=== PATIENT | female | born 1965 | race Caucasian/White ===

== ENCOUNTER 2017-10-11 11:15 | Emergency (ER) | payer OTHER ==
[~2017-10-11] VITALS: Ht 162.6 cm; Wt 67.0 kg
[~2017-10-11 11:15] MED LIST: ARMO90TA PO; DICL1CAP4 PO; HYDR50TA94 PO; METR0.7514 PR; ORAC40CA PO; PRED20 PO; ROBA500T PO
[2017-10-11 11:20] VITALS: BP 162/101; PULSE 84; RESP 17; TEMP 98.5; O2SAT 99
--- NOTE | 2017-10-11 12:05 | PD ---
HPI Chief Complaint: Headache Time Seen by Provider: 11:49 Travel History International Travel<30 days: No Contact w/Intl Traveler<30days: No Traveled to known affect area: No History of Present Illness HPI 52-year-old female complains of headache, neck pain. Patient states that she has history of headache about 20 years ago and had full workup including CT of the brain. Workup was negative at that time. Patient states that she started having headache for the past 2 weeks. Patient states that headache is worse for the past several days. Patient states that headache is throbbing headache mostly in the back of the head. Patient denies any visual change. Patient states that she had aching pain to the neck area. Patient denies any fever chills. Patient denies any chest pain or shortness of breath. Patient denies abdominal pain. Patient denies any focal weakness or numbness of extremity. Patient has history of Maryan thyroiditis. Patient's on thyroid pills. Patient denies any photophobia nausea vomiting with headache. Patient denies any recent head injury. Patient was seen by physician the [place] [facility]. 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) Tonsillectomy: Yes Social History Alcohol Use: Yes (" NEEDED " ) Tobacco Use: Yes (1 PPD) Substance Use: No Allergies-Medications (Allergen,Severity, Reaction): Coded Allergies: penicillin G (Unverified Allergy, Severe, HIVES, 10/11/17) thyroid, pork (Verified Allergy, Severe, hives, 10/11/17) Reported Meds & Prescriptions Reported Meds & Active Scripts Active Robaxin (Methocarbamol) 500 Mg Tab 500 Mg PO TID 5 Days Zorvolex (Diclofenac) 35 Mg Cap 35 Mg PO TID 3 Days Atarax (Hydroxyzine HCl) 50 Mg Tab 50 Mg PO Q6 PRN Deltasone (Prednisone) 20 Mg Tab 20 Mg PO BID Reported Metrogel (Metronidazole) 70 Gm Gel 1 Applic [place] BID Oracea (Doxycycline (Rosacea)) 40 Mg Cap 40 Mg PO DAILY [place] Thyroid (Thyroid) 90 Mg Tab 90 Mg PO DAILY Review of Systems General / Constitutional: No: Fever Eyes: No: Visual changes HENT: Positive: Headaches, Neck Pain Cardiovascular: No: Chest Pain or Discomfort Respiratory: No: Shortness of Breath Gastrointestinal: No: Abdominal Pain Genitourinary: No: Dysuria Musculoskeletal: No: Pain Skin: No Rash Neurologic: No: Weakness Psychiatric: No: Depression Endocrine: No: Polydipsia Hematologic/Lymphatic: No: Easy Bruising Physical Exam Narrative GENERAL: Well-nourished, well-developed patient. SKIN: Focused skin assessment warm/dry. HEAD: Normocephalic. EYES: No scleral icterus. No injection or drainage. Pupils 2 mm equal reactive. NECK: Supple, trachea midline. No JVD or lymphadenopathy. No meningismus CARDIOVASCULAR: Regular rate and rhythm without murmurs, gallops, or rubs. RESPIRATORY: Breath sounds equal bilaterally. No accessory muscle use. GASTROINTESTINAL: Abdomen soft, non-tender, nondistended. MUSCULOSKELETAL: No cyanosis, or edema. BACK: Nontender without obvious deformity. No CVA tenderness. Neurologic exam: Patient is awake and alert oriented 3. No obvious focal neurological deficit. Data Data Last Documented VS Vital Signs Date Time Temp Pulse Resp B/P (MAP) Pulse Ox O2 Delivery O2 Flow Rate FiO2 10/11/17 11:29 Room Air 10/11/17 11:20 98.5 84 17 162/101 (121) 99 Orders Orders Basic Metabolic Panel (Bmp) (10/11/17 11:57) Ct Brain W/O Iv Contrast(Rout) (10/11/17 11:57) Ct Cerv Spine W/O Contrast (10/11/17 11:57) Labs Laboratory Tests Test 10/11/17 12:09 Blood Urea Nitrogen 10 MG/DL Creatinine 0.59 MG/DL Random Glucose 86 MG/DL Calcium Level 8.5 MG/DL Sodium Level 140 MEQ/L Potassium Level 3.7 MEQ/L Chloride Level 105 MEQ/L Carbon Dioxide Level 26.5 MEQ/L Anion Gap 9 MEQ/L Estimat Glomerular Filtration Rate 107 ML/MIN MDM Medical Decision Making Medical Screen Exam Complete: Yes Emergency Medical Condition: Yes Interpretation(s) Last Impressions Head CT 10/11/17 [id number] Signed Impressions: Service Date/Time: September 12:34 - CONCLUSION: 1. No acute intracranial abnormality. Solomon Justin MD Cervical Spine CT 10/11/17 1157 Signed Impressions: Service Date/Time: September 12:34 - CONCLUSION: No fracture or subluxation. Degenerative changes. Adryan Duque MD Differential Diagnosis Differential diagnosis including tension headache, cluster headache, migraine headache, cervical strain Narrative Course 52-year-old female complains of headache and neck pain. Diagnosis Primary Impression: Cephalgia Qualified Codes: R51 - Headache Additional Impression: Cervical strain Qualified Codes: S16.1XXA - Strain of muscle, fascia and tendon at neck level , initial encounter Patient Instructions: General Instructions Additional Instructions: Take medication as needed for headache and neck pain. Follow-up with personal physician. Follow-up with local physician for thyroid check. Med/Other Pt SpecificInfo: Prescription(s) given Scripts Fxsffovjif-Jxtssvjilztog-Vawcgfyy (Fioricet) 50-300-40 Mg Cap 1-2 CAP PO Q6H Y for HEADACHE, #30 CAP 0 Refills Prov: Trenton Bose MD 10/11/17 Disposition: 01 DISCHARGE HOME Condition: Stable Trenton Bose MD Oct 11, 2017 12:05
--- NOTE | 2017-10-11 12:42 | RADRPT ---
EXAM DATE/TIME: 10/11/2017 12:34 [facility] COMPARISON: No previous studies available for comparison. INDICATIONS : Dizzy with headaches and neck pain RADIATION DOSE: 33.98 CTDIvol (mGy) MEDICAL HISTORY : Thyroid disease,migraines SURGICAL HISTORY : None. ENCOUNTER: Initial ACUITY: 1 day PAIN SCALE: 8/10 LOCATION: cranial TECHNIQUE: Multiple contiguous axial images were obtained of the head. Using automated exposure control and adj ustment of the mA and/or kV according to patient size, radiation dose was kept as low as reasonably a chievable to obtain optimal diagnostic quality images. DICOM format image data is available electro nically for review and comparison. FINDINGS: CEREBRUM: The ventricles are normal for age. No evidence of midline shift, mass lesion, hemorrhage or acute in farction. No extra-axial fluid collections are seen. POSTERIOR FOSSA: The cerebellum and brainstem are intact. The 4th ventricle is midline. The cerebellopontine angle i s unremarkable. EXTRACRANIAL: The visualized portion of the orbits is intact. SKULL: The calvaria is intact. No evidence of skull fracture. CONCLUSION: 1. No acute intracranial abnormality. Solomon Justin MD on October 11, 2017 at 12:39 Board Certified Radiologist. This report was verified electronically.
[2017-10-11 12:52] LABS: BICARBONATE 26.5 MEQ/L (21.0-32.0); CALCIUM 8.5 MG/DL (8.5-10.1); CREATININE 0.59 MG/DL (0.50-1.00)
--- NOTE | 2017-10-11 12:55 | RADRPT ---
EXAM DATE/TIME: 10/11/2017 12:34 [facility] COMPARISON: No previous studies available for comparison. INDICATIONS : Dizzy with headache and neck pain RADIATION DOSE: 20.62 CTDIvol (mGy) MEDICAL HISTORY : Thyroid disease,migraines SURGICAL HISTORY : None. ENCOUNTER: Initial ACUITY: 1 day PAIN SCALE: 8/10 LOCATION: neck TECHNIQUE: Volumetric scanning of the cervical spine was performed. Multiplanar reconstructions in the sagittal, coronal and oblique axial planes were performed. Using automated exposure control and adjustment o f the mA and/or kV according to patient size, radiation dose was kept as low as reasonably achievable to obtain optimal diagnostic quality images. DICOM format image data is available electronically f or review and comparison. FINDINGS: VERTEBRAE: Normal vertebral body height. ALIGNMENT: No evidence of subluxation. C2-C3: The bony spinal canal is normal in size. No evidence of disc bulge or herniation. The neural forami na are bilaterally patent. C3-C4: The bony spinal canal is normal in size. No evidence of disc bulge or herniation. Bilateral neural f oraminal narrowing. C4-C5: The bony spinal canal is normal in size. No evidence of disc bulge or herniation. There are degenera tive changes with narrowing of the neural foramen greater on the left. C5-C6: The bony spinal canal is normal in size. No evidence of disc bulge or herniation. Bilateral neural f oraminal narrowing. C6-C7: The bony spinal canal is normal in size. No evidence of disc bulge or herniation. The neural forami na are bilaterally patent. C7-T1: The bony spinal canal is normal in size. No evidence of disc bulge or herniation. The neural forami na are bilaterally patent. CONCLUSION: No fracture or subluxation. Degenerative changes. Adryan Duque MD on October 11, 2017 at 12:50 Board Certified Radiologist. This report was verified electronically.
[2017-10-11] MEDS ORDERED: BUTA1CAP PO (13:39)
== END 2017-10-11 14:22 | disposition home or self-care (01) ==
LOC: NEPD 11:15
DX: R51 Headache (principal); S16.1XXA Strain of muscle, fascia and tendon at neck level, initial encounter; E06.3 Autoimmune thyroiditis; F17.210 Nicotine dependence, cigarettes, uncomplicated; Z88.0 Allergy status to penicillin; Z79.899 Other long term (current) drug therapy
CPT/HCPCS: 70450; 72125; 80048; 84443

== ENCOUNTER 2017-10-27 01:54 | Emergency (ER) | payer OTHER ==
[~2017-10-27] VITALS: Ht 162.6 cm; Wt 67.3 kg
[~2017-10-27 01:54] MED LIST changes: +BUTA1CAP PO
[2017-10-27 02:03] VITALS: BP 157/95; PULSE 69; RESP 16; TEMP 97.3; O2SAT 99
[2017-10-27] MEDS ORDERED: MECL-62 PO (02:19)
--- NOTE | 2017-10-27 02:19 | PD ---
HPI Chief Complaint: Numbness/Tingling Time Seen by Provider: 02:15 Travel History International Travel<30 days: No Contact w/Intl Traveler<30days: No Traveled to known affect area: No History of Present Illness HPI Is a 52-year-old woman who presents to the emergency department multiple complaints. History is a little bit convoluted she appears to be intoxicated. She states that she is having spells that she thought were seizures but was told that they were not seizures that appear to involve intermittent dizziness that brought on by [place] sounds or heights. She states is been ongoing for quite some time and last for "forever" when they come on. Also appears to be associated some neck and back pain. She has had previous workup including CT scans and labs here, and MRIs with the [facility]. She is [facility] up at the [facility] for endocrinology for her thyroid. She states she came in tonight because she knows that something is wrong and that she can go on living like this. She has a lot of difficulty clarifying her symptoms are being able to describe exactly later, the emergency department tonight. She was brought in by a friend apparently in by private vehicle. History Past Medical History Narrative Medical Thyroid disease Menopausal: Yes : 0 Social History Alcohol Use: Yes (" NEEDED " ) Tobacco Use: Yes (1 PPD) Allergies-Medications (Allergen,Severity, Reaction): Coded Allergies: penicillin G (Unverified Allergy, Severe, HIVES, 10/27/17) thyroid, pork (Verified Allergy, Severe, hives, 10/27/17) Reported Meds & Prescriptions Reported Meds & Active Scripts Active Fioricet (Sriobzbylx-Aobrhqstgkgee-Lfifemwd) 50-300-40 Mg Cap 1-2 Cap PO Q6H PRN Robaxin (Methocarbamol) 500 Mg Tab 500 Mg PO TID 5 Days Zorvolex (Diclofenac) 35 Mg Cap 35 Mg PO TID 3 Days Atarax (Hydroxyzine HCl) 50 Mg Tab 50 Mg PO Q6 PRN Deltasone (Prednisone) 20 Mg Tab 20 Mg PO BID Reported Metrogel (Metronidazole) 70 Gm Gel 1 Applic [place] BID Oracea (Doxycycline (Rosacea)) 40 Mg Cap 40 Mg PO DAILY [place] Thyroid (Thyroid) 90 Mg Tab 90 Mg PO DAILY Review of Systems Except as stated in HPI: all other systems reviewed are Neg Physical Exam Narrative GENERAL: 52-year-old woman, anxious, mildly intoxicated. SKIN: Focused skin assessment warm/dry. HEAD: Atraumatic. Normocephalic. EYES: Pupils equal and round. No scleral icterus. No injection or drainage. ENT: No nasal bleeding or discharge. Mucous membranes pink and moist. NECK: Trachea midline. Moves neck freely. CARDIOVASCULAR: Regular rate and rhythm. No murmur appreciated. RESPIRATORY: No accessory muscle use. Clear to auscultation. Breath sounds equal bilaterally. GASTROINTESTINAL: Abdomen soft, non-tender, nondistended. Hepatic and splenic margins not palpable. MUSCULOSKELETAL: No obvious deformities. No clubbing. No cyanosis. No edema. NEUROLOGICAL: Awake and alert. No obvious cranial nerve deficits. Motor grossly within normal limits. Speech is a little bit slurred. PSYCHIATRIC: Anxious per Data Data Last Documented VS Vital Signs Date Time Temp Pulse Resp B/P (MAP) Pulse Ox O2 Delivery O2 Flow Rate FiO2 10/27/17 02:03 97.3 69 16 157/95 (115) 99 MDM Medical Decision Making Medical Screen Exam Complete: Yes Emergency Medical Condition: Yes Differential Diagnosis Anxiety, intoxication, adverse effect to medication, atypical seizures, vertigo , BPPV, other Narrative Course Medical decision making 52-year-old woman presents emerged department complaining of what seems to be intermittent dizzy spells ongoing for quite some time, multiple previous evaluations. Evaluations compounded by the fact that she appears to be intoxicated. Nonetheless shows overall well. No focal deficits. She has had recent imaging on our system. I think [facility] is [facility]. Diagnosis Primary Impression: Dizzy spells Additional Instructions: Use meclizine as needed for dizzy spells. [facility]. Med/Other Pt SpecificInfo: No Change to Meds Scripts Meclizine (Meclizine) 25 Mg Tab 25 MG PO TID Y for VERTIGO, #15 TAB 0 Refills Prov: Jareth Carbajal MD 10/27/17 Disposition: 01 DISCHARGE HOME Condition: Stable Jareth Carbajal MD Oct 27, 2017 02:19
[2017-10-27] MEDS ORDERED: OMEP40CA2 PO (02:32)
[2017-10-27] MEDS ORDERED: LEVO.2 PO (02:32)
[2017-10-27 02:37] VITALS: BP 128/81
[2017-10-27 05:51] VITALS: BP 114/79
== END 2017-10-27 05:58 | disposition home or self-care (01) ==
LOC: PHED 01:54
DX: R42 Dizziness and giddiness (principal); F17.210 Nicotine dependence, cigarettes, uncomplicated; Z88.0 Allergy status to penicillin; Z79.899 Other long term (current) drug therapy
CPT/HCPCS: 99281

== ENCOUNTER 2017-10-27 19:45 | Inpatient (IN) | payer OTHER ==
[~2017-10-27] VITALS: Ht 162.6 cm; Wt 65.9 kg
[~2017-10-27 19:45] MED LIST changes: +LEVO.2 PO; +MECL-62 PO; +OMEP40CA2 PO
[2017-10-27 20:15] VITALS: BP 162/107; PULSE 83; RESP 18; O2SAT 98
--- NOTE | 2017-10-27 20:20 | PD ---
HPI Chief Complaint: Psychiatric Symptoms Time Seen by Provider: 20:04 Travel History International Travel<30 days: No Contact w/Intl Traveler<30days: No Traveled to known affect area: No History of Present Illness HPI 52-year-old white female presents emergency department under a [place] act by PD. She had text message to a friend stating that she was done. She had stated that she had drank alcohol and taken pills. The patient states that she is not truly suicidal. She states that she is frustrated regarding her pain. She does drink alcohol. She took her regular medications and one additional Flexeril. She denies any overdose. Patient denies any homicidal ideation. She does complain of chronic pain. She states that she is 40% service- connected. She was seen [facility] the [facility] last week and had an MRI of the brain done. She states that she has headaches and feels as if she may be having seizures. She states that she never loses consciousness. She has problems focusing and concentrating. Symptoms are moderate. No alleviating factors. Exacerbated by alcohol. 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) Tonsillectomy: Yes Other Surgery: Yes (Sinus) Social History Alcohol Use: Yes (" NEEDED " ) Tobacco Use: Yes (1 PPD) Substance Use: No Allergies-Medications (Allergen,Severity, Reaction): Coded Allergies: penicillin G (Verified Allergy, Severe, HIVES, 10/27/17) thyroid, pork (Verified Allergy, Severe, hives, 10/27/17) Reported Meds & Prescriptions Reported Meds & Active Scripts Active Meclizine (Meclizine HCl) 25 Mg Tab 25 Mg PO TID PRN Fioricet (Hshiijyhbh-Cvtebaviejtmz-Ymjtmydp) 50-300-40 Mg Cap 1-2 Cap PO Q6H PRN Robaxin (Methocarbamol) 500 Mg Tab 500 Mg PO TID 5 Days Zorvolex (Diclofenac) 35 Mg Cap 35 Mg PO TID 3 Days Reported Omeprazole 40 Mg Cap 40 Mg PO DAILY Synthroid (Levothyroxine Sodium) 200 Mcg Tab 200 Mcg PO DAILY Review of Systems Except as stated in HPI: all other systems reviewed are Neg General / Constitutional: No: Fever Eyes: No: Visual changes HENT: Positive: Headaches, Neck Pain Cardiovascular: No: Chest Pain or Discomfort Respiratory: No: Shortness of Breath Gastrointestinal: Positive: Nausea Genitourinary: No: Dysuria Musculoskeletal: No: Pain Skin: No Rash Neurologic: Positive: Dizziness, Coordination Problem, Headache, Paresthesia, No: Weakness, Syncope, Focal Abnormalities Psychiatric: Positive: Anxiety, Depression, Mood Disorder, Substance Abuse ( Alcohol), No: Suicidal Ideations, Disorder of Thought Endocrine: No: Polydipsia Hematologic/Lymphatic: No: Easy Bruising Physical Exam Narrative GENERAL: Well-nourished, well-developed patient. Patient appears intoxicated. Speech is slurred. SKIN: Warm and dry. HEAD: Normocephalic and atraumatic. EYES: No scleral icterus. No injection or drainage. ENT: No nasal drainage noted. Mucous membranes pink. Airway patent. NECK: Supple, trachea midline. Moves head freely without obvious discomfort. CARDIOVASCULAR: Regular rate and rhythm without murmurs, gallops, or rubs. RESPIRATORY: Breath sounds equal bilaterally. No accessory muscle use. GASTROINTESTINAL: Abdomen soft, non-tender, nondistended. EXTREMITIES: No cyanosis or edema. BACK: Nontender without obvious deformity. No CVA tenderness. NEURO: Patient is alert and oriented. no sensorimotor deficits. Nonfocal. Slurred al speech. PSYCH: No delusions. No auditory or visual hallucinations. Data Data Last Documented VS Vital Signs Date Time Temp Pulse Resp B/P (MAP) Pulse Ox O2 Delivery O2 Flow Rate FiO2 10/27/17 21:32 92 18 115/65 (82) 95 Room Air Orders Orders Complete Blood Count With Diff (10/27/17 20:12) Comprehensive Metabolic Panel (10/27/17 20:12) Thyroid Stimulating Hormone (10/27/17 20:12) Urinalysis - C+S If Indicated (10/27/17 20:12) Psych Screen (10/27/17 20:12) Drug Screen, Random Urine (10/27/17 20:12) Alcohol (Ethanol) (10/27/17 20:12) Salicylates (Aspirin) (10/27/17 20:12) Tylenol (Acetaminophen) (10/27/17 20:12) Haloperidol Inj (Haldol Inj) (10/27/17 20:45) Lorazepam Inj (Ativan Inj) (10/27/17 20:45) Restraints Non-Violent SOPHIA.Q3H (10/27/17 20:42) Labs Laboratory Tests Test 10/27/17 20:15 10/27/17 21:05 White Blood Count 9.0 TH/MM3 Red Blood Count 4.71 MIL/MM3 Hemoglobin 15.2 GM/DL Hematocrit 43.7 % Mean Corpuscular Volume 92.9 FL Mean Corpuscular Hemoglobin 32.3 PG Mean Corpuscular Hemoglobin Concent 34.7 % Red Cell Distribution Width 14.2 % Platelet Count 307 TH/MM3 Mean Platelet Volume 9.2 FL Neutrophils (%) (Auto) 30.8 % Lymphocytes (%) (Auto) 60.1 % Monocytes (%) (Auto) 3.4 % Eosinophils (%) (Auto) 5.2 % Basophils (%) (Auto) 0.5 % Neutrophils # (Auto) 2.8 TH/MM3 Lymphocytes # (Auto) 5.4 TH/MM3 Monocytes # (Auto) 0.3 TH/MM3 Eosinophils # (Auto) 0.5 TH/MM3 Basophils # (Auto) 0.0 TH/MM3 CBC Comment AUTO DIFF Differential Total Cells Counted 100 Neutrophils % (Manual) 36 % Lymphocytes % 59 % Monocytes % 1 % Eosinophils % 1 % Basophils % 3 % Neutrophils # (Manual) 3.2 TH/MM3 Differential Comment FINAL DIFF MANUAL Platelet Estimate NORMAL Platelet Morphology Comment NORMAL Red Cell Morphology Comment NORMAL Urine Color LIGHT-YELLOW Urine Turbidity CLEAR Urine pH 5.5 Urine Specific [place] 1.002 Urine Protein NEG mg/dL Urine Glucose (UA) NEG mg/dL Urine Ketones NEG mg/dL Urine Occult Blood NEG Urine Nitrite NEG Urine Bilirubin NEG Urine Urobilinogen LESS THAN 2.0 MG/DL Urine Leukocyte Esterase NEG Urine WBC LESS THAN 1 /hpf Urine Squamous Epithelial Cells <1 /hpf Urine Bacteria RARE /hpf Microscopic Urinalysis Comment CULT NOT INDICATED Urine Opiates Screen NEG Urine Barbiturates Screen POS Urine Amphetamines Screen NEG Urine Benzodiazepines Screen NEG Urine Cocaine Screen NEG Urine Cannabinoids Screen NEG Blood Urea Nitrogen 7 MG/DL Creatinine 0.71 MG/DL Random Glucose 98 MG/DL Total Protein 7.9 GM/DL Albumin 3.8 GM/DL Calcium Level 8.2 MG/DL Alkaline Phosphatase 106 U/L Aspartate Amino Transf (AST/SGOT) 25 U/L Alanine Aminotransferase (ALT/SGPT) 30 U/L Total Bilirubin 0.1 MG/DL Sodium Level 145 MEQ/L Potassium Level 3.4 MEQ/L Chloride Level 112 MEQ/L Carbon Dioxide Level 21.2 MEQ/L Anion Gap 12 MEQ/L Estimat Glomerular Filtration Rate 86 ML/MIN Thyroid Stimulating Hormone 3rd Gen 4.780 uIU/ML Salicylates Level 3.4 MG/DL Acetaminophen Level LESS THAN 2.0 MCG/ML Ethyl Alcohol Level 304 MG/DL MDM Medical Decision Making Medical Screen Exam Complete: Yes Emergency Medical Condition: Yes Medical Record Reviewed: Yes Interpretation(s) Laboratory Tests Test 10/27/17 20:15 10/27/17 21:05 White Blood Count 9.0 TH/MM3 Red Blood Count 4.71 MIL/MM3 Hemoglobin 15.2 GM/DL Hematocrit 43.7 % Mean Corpuscular Volume 92.9 FL Mean Corpuscular Hemoglobin 32.3 PG Mean Corpuscular Hemoglobin Concent 34.7 % Red Cell Distribution Width 14.2 % Platelet Count 307 TH/MM3 Mean Platelet Volume 9.2 FL Neutrophils (%) (Auto) 30.8 % Lymphocytes (%) (Auto) 60.1 % Monocytes (%) (Auto) 3.4 % Eosinophils (%) (Auto) 5.2 % Basophils (%) (Auto) 0.5 % Neutrophils # (Auto) 2.8 TH/MM3 Lymphocytes # (Auto) 5.4 TH/MM3 Monocytes # (Auto) 0.3 TH/MM3 Eosinophils # (Auto) 0.5 TH/MM3 Basophils # (Auto) 0.0 TH/MM3 CBC Comment AUTO DIFF Differential Total Cells Counted 100 Neutrophils % (Manual) 36 % Lymphocytes % 59 % Monocytes % 1 % Eosinophils % 1 % Basophils % 3 % Neutrophils # (Manual) 3.2 TH/MM3 Differential Comment FINAL DIFF MANUAL Platelet Estimate NORMAL Platelet Morphology Comment NORMAL Red Cell Morphology Comment NORMAL Urine Color LIGHT-YELLOW Urine Turbidity CLEAR Urine pH 5.5 Urine Specific [place] 1.002 Urine Protein NEG mg/dL Urine Glucose (UA) NEG mg/dL Urine Ketones NEG mg/dL Urine Occult Blood NEG Urine Nitrite NEG Urine Bilirubin NEG Urine Urobilinogen LESS THAN 2.0 MG/DL Urine Leukocyte Esterase NEG Urine WBC LESS THAN 1 /hpf Urine Squamous Epithelial Cells <1 /hpf Urine Bacteria RARE /hpf Microscopic Urinalysis Comment CULT NOT INDICATED Urine Opiates Screen NEG Urine Barbiturates Screen POS Urine Amphetamines Screen NEG Urine Benzodiazepines Screen NEG Urine Cocaine Screen NEG Urine Cannabinoids Screen NEG Blood Urea Nitrogen 7 MG/DL Creatinine 0.71 MG/DL Random Glucose 98 MG/DL Total Protein 7.9 GM/DL Albumin 3.8 GM/DL Calcium Level 8.2 MG/DL Alkaline Phosphatase 106 U/L Aspartate Amino Transf (AST/SGOT) 25 U/L Alanine Aminotransferase (ALT/SGPT) 30 U/L Total Bilirubin 0.1 MG/DL Sodium Level 145 MEQ/L Potassium Level 3.4 MEQ/L Chloride Level 112 MEQ/L Carbon Dioxide Level 21.2 MEQ/L Anion Gap 12 MEQ/L Estimat Glomerular Filtration Rate 86 ML/MIN Thyroid Stimulating Hormone 3rd Gen 4.780 uIU/ML Salicylates Level 3.4 MG/DL Acetaminophen Level LESS THAN 2.0 MCG/ML Ethyl Alcohol Level 304 MG/DL Differential Diagnosis MDM: High Differential diagnoses: Schizophrenia, schizoaffective disorder, bipolar, anxiety, depression, adjustment reaction, mood disorder NOS, ODD, depressive disorder NOS, dementia, dementia with agitation, psychosis NOS, substance induced mood disorder, DMDD, Asperger syndrome, infection,electrolyte abnormality, malingering. Narrative Course Mental health screening discussed with the patient. Psychiatric screen ordered. The patient had eloped after having her initial evaluation here in the ER. She was brought back by security. She was placed in nonviolent restraints and medicated with Haldol 5 mg and Ativan 2 mg IM. Patient is medically cleared This is medical clearance for psychiatric admission, alcohol intoxication Diagnosis Primary Impression: Medical clearance for psychiatric admission Additional Impression: Alcohol intoxication Qualified Codes: F10.920 - Alcohol use, unspecified with intoxication, uncomplicated Condition: Stable Agustin Interiano Oct 27, 2017 20:20
[2017-10-27 20:28] LABS: AUTOMATED NEUTROPHIL # 2.8 TH/MM3 (1.8-7.7); BASOPHIL % 0.5 % (0.0-2.0); EOSINOPHIL # 0.5 TH/MM3 (0-0.4); EOSINOPHIL % 5.2 % (0.0-4.0); HEMATOCRIT 43.7 % (35.0-46.0); HEMOGLOBIN 15.2 GM/DL (11.6-15.3); LYMPH % 60.1 % (9.0-44.0); LYMPHOCYTE # 5.4 TH/MM3 (1.0-4.8); MEAN CELL VOLUME 92.9 FL (80.0-100.0); MEAN CORPUSCULAR HEMOGLOBIN 32.3 PG (27.0-34.0); MEAN CORPUSCULAR HGB CONC 34.7 % (32.0-36.0); MEAN PLATELET VOLUME 9.2 FL (7.0-11.0); MONO % 3.4 % (0.0-8.0); MONOCYTE # 0.3 TH/MM3 (0-0.9); NEUT % 30.8 % (16.0-70.0); PLATELET COUNT 307 TH/MM3 (150-450); RED BLOOD COUNT 4.71 MIL/MM3 (4.00-5.30); RED CELL DISTRIBUTION WIDTH 14.2 % (11.6-17.2)
[2017-10-27 20:33] LABS: BACTERIA, URINE RARE /hpf; BILIRUBIN, URINE NEG (NEG); BLOOD, URINE NEG (NEG); GLUCOSE,URINE NEG (NEG); KETONE, URINE NEG (NEG); NITRITE,URINE NEG (NEG); PH, URINE 5.5 (5.0-8.5); SQUAMOUS EPITHELIAL CELL URINE <1 /hpf (0-5); URINE COLOR LIGHT-YELLOW (YELLW/STRAW); URINE LEUKOCYTE ESTERASE NEG (NEG)
[2017-10-27] MEDS ORDERED: LORazepam 2 MG/ML VIAL IM ONE (20:45)
[2017-10-27] MEDS ORDERED: HALOPERIDOL LACTATE 5 MG/ML AMP IM ONE (20:45)
[2017-10-27 21:32] VITALS: BP 115/65; PULSE 92; RESP 18; O2SAT 95
[2017-10-27 21:43] LABS: ALBUMIN 3.8 GM/DL (3.4-5.0); ALT (GPT) 30 U/L (10-53); AST (GOT) 25 U/L (15-37); BICARBONATE 21.2 MEQ/L (21.0-32.0); BLOOD UREA NITROGEN 7 MG/DL (7-18); CALCIUM 8.2 MG/DL (8.5-10.1); CHLORIDE 112 MEQ/L (98-107); CREATININE 0.71 MG/DL (0.50-1.00); GLOMERULAR FILTRATION RATE 86 ML/MIN (>89); GLUCOSE,RANDOM 98 MG/DL (74-106); SODIUM (NA) 145 MEQ/L (136-145)
[2017-10-27 21:44] LABS: ACETAMINOPHEN LESS THAN 2.0 MCG/ML (10.0-30.0)
[2017-10-27 21:53] LABS: ALKALINE PHOSPHATASE 106 U/L (45-117); TOTAL BILIRUBIN ADULT 0.1 MG/DL (0.2-1.0); TOTAL PROTEIN 7.9 GM/DL (6.4-8.2)
[2017-10-27 22:15] LABS: BASOPHILS 3 % (0-2); LYMPHOCYTES 59 % (9-44); MONOCYTES 1 % (0-8); NEUTROPHIL # MANUAL DIFF 3.2 TH/MM3 (1.8-7.7); POLYS (SEG NEUTROPHILS) 36 % (16-70)
[2017-10-28] MEDS ORDERED: LORazepam 1 MG TAB PO ONE (11:30)
[2017-10-28 14:15] VITALS: BP 140/77; PULSE 76; RESP 18; TEMP 97.6; O2SAT 98
[2017-10-28] MEDS ORDERED: diphenhydrAMINE HCL 50 MG CAP PO PRN (16:45)
[2017-10-28] MEDS ORDERED: ALUMINUM/MAGNESIUM/SIMETH 30 ML CUP PO PRN (16:45)
[2017-10-28] MEDS ORDERED: diphenhydrAMINE HCL 50 MG/ML VIAL IM PRN (16:45)
[2017-10-28] MEDS ORDERED: MAGNESIUM HYDROXIDE SUSP 30 ML CUP PO PRN (16:45)
[2017-10-28] MEDS ORDERED: hydrOXYzine HCL 50 MG TAB PO PRN (16:45)
[2017-10-28] MEDS ORDERED: ACETAMINOPHEN 325 MG TAB PO PRN (16:45)
[2017-10-28 16:58] VITALS: BP 152/89; PULSE 66; RESP 18; TEMP 97.5; O2SAT 100
[2017-10-28] MEDS ORDERED: LORazepam 2 MG/ML VIAL IV PUSH PRN ×4 (17:15)
[2017-10-28] MEDS ORDERED: FLUMAZENIL 0.5 MG/5 ML VIAL IV PUSH PRN (17:15)
[2017-10-28] MEDS ORDERED: LORazepam 1 MG TAB PO PRN (17:15)
[2017-10-28] MEDS ORDERED: LORazepam 2 MG TAB PO PRN (17:15)
--- NOTE | 2017-10-28 18:12 | PD.CONS ---
HPI Service [facility] Consult Requested By Dr. Hernandez Reason for Consult Medical management Primary Care Physician [facility] Diagnoses: History of Present Illness This is a 52/F with history of hypothyroidism and GERD admitted to psych unit for suicidal ideations. Per patient, she has been taking omeprazole for her GERD and a thyroid pill for her hypothyroidism. She was recently told that she is taking 2 room much thyroid medications hence she stopped taking thyroid medications for a while. She is also complaining of chronic neck pain for which she is being worked up as outpatient. She also has an golf club weigher and she has an appointment on Sunday. Presently, the patient is 70 complaints. Patient denies any fever, chills, nausea, vomiting, diarrhea or constipation. She currently complains of neck pain that is resolved by Flexeril. Review of Systems ROS Limitations: Other (All other pertinent systems were reviewed and are negative.) Past Family Social History Allergies: Coded Allergies: penicillin G (Verified Allergy, Severe, HIVES, 10/27/17) thyroid, pork (Verified Allergy, Severe, hives, 10/27/17) Past Medical History Hypothyroidism GERD Past Surgical History Eye surgery Tonsillectomy Oophorectomy Reported Medications Meclizine (Meclizine HCl) 25 Mg Tab 25 Mg PO TID PRN Fioricet (Jaoxtssmhx-Icpxrlxpiolas-Ydgiwiqo) 50-300-40 Mg Cap 1-2 Cap PO Q6H PRN Robaxin (Methocarbamol) 500 Mg Tab 500 Mg PO TID 5 Days Zorvolex (Diclofenac) 35 Mg Cap 35 Mg PO TID 3 Days Omeprazole 40 Mg Cap 40 Mg PO DAILY Synthroid (Levothyroxine Sodium) 200 Mcg Tab 200 Mcg PO DAILY Family History Prominent history of hypothyroidism in the family Social History Smokes one pack a day, no significant alcohol use Physical Exam Vital Signs Vital Signs Date Time Temp Pulse Resp B/P (MAP) Pulse Ox O2 Delivery O2 Flow Rate FiO2 10/28/17 16:58 97.5 66 18 152/89 (110) 100 10/28/17 16:36 10/28/17 14:15 97.6 76 18 140/77 (98) 98 Room Air 10/27/17 21:32 92 18 115/65 (82) 95 Room Air 10/27/17 20:15 83 18 162/107 (125) 98 Physical Exam Not in distress PERRL, pink conjunctiva without injection, anicteric Nose without bleeding Supple neck Normal rate and regular rhythm, no murmurs gallops or rubs appreciated. Clear to auscultation and symmetric bilaterally, normal respiratory effort. Normal bowel sounds, soft No edema. Alert awake, oriented, no cranial nerve deficits, moves all 4 extremities, no focal neurologic deficits Laboratory Laboratory Tests Test 10/27/17 20:15 10/27/17 21:05 White Blood Count 9.0 Red Blood Count 4.71 Hemoglobin 15.2 Hematocrit 43.7 Mean Corpuscular Volume 92.9 Mean Corpuscular Hemoglobin 32.3 Mean Corpuscular Hemoglobin Concent 34.7 Red Cell Distribution Width 14.2 Platelet Count 307 Mean Platelet Volume 9.2 Neutrophils (%) (Auto) 30.8 Lymphocytes (%) (Auto) 60.1 Monocytes (%) (Auto) 3.4 Eosinophils (%) (Auto) 5.2 Basophils (%) (Auto) 0.5 Neutrophils # (Auto) 2.8 Lymphocytes # (Auto) 5.4 Monocytes # (Auto) 0.3 Eosinophils # (Auto) 0.5 Basophils # (Auto) 0.0 CBC Comment AUTO DIFF Differential Total Cells Counted 100 Neutrophils % (Manual) 36 Lymphocytes % 59 Monocytes % 1 Eosinophils % 1 Basophils % 3 Neutrophils # (Manual) 3.2 Differential Comment FINAL DIFF MANUAL Platelet Estimate NORMAL Platelet Morphology Comment NORMAL Red Cell Morphology Comment NORMAL Urine Color LIGHT-YELLOW Urine Turbidity CLEAR Urine pH 5.5 Urine Specific [place] 1.002 Urine Protein NEG Urine Glucose (UA) NEG Urine Ketones NEG Urine Occult Blood NEG Urine Nitrite NEG Urine Bilirubin NEG Urine Urobilinogen LESS THAN 2.0 Urine Leukocyte Esterase NEG Urine WBC LESS THAN 1 Urine Squamous Epithelial Cells <1 Urine Bacteria RARE Microscopic Urinalysis Comment CULT NOT INDICATED Urine Opiates Screen NEG Urine Barbiturates Screen POS Urine Amphetamines Screen NEG Urine Benzodiazepines Screen NEG Urine Cocaine Screen NEG Urine Cannabinoids Screen NEG Blood Urea Nitrogen 7 Creatinine 0.71 Random Glucose 98 Total Protein 7.9 Albumin 3.8 Calcium Level 8.2 Alkaline Phosphatase 106 Aspartate Amino Transf (AST/SGOT) 25 Alanine Aminotransferase (ALT/SGPT) 30 Total Bilirubin 0.1 Sodium Level 145 Potassium Level 3.4 Chloride Level 112 Carbon Dioxide Level 21.2 Anion Gap 12 Estimat Glomerular Filtration Rate 86 Thyroid Stimulating Hormone 3rd Gen 4.780 Salicylates Level 3.4 Acetaminophen Level LESS THAN 2.0 Ethyl Alcohol Level 304 Result Diagram: 10/27/17201410/27/17 Assessment and Plan Assessment and Plan This is a 52-year-old female with history of hypothyroidism Suicidal ideations-management per psychiatry Hypothyroidism- CBC, BMP and TSH reviewed. TSH elevated, check free T3 and free T4. She stopped taking levothyroxine for a few days, last dose was yesterday. She has an appointment with her golf club weigher and Sunday. If not significantly deranged, may just follow-up with golf club weigher on Sunday. GERD-restart PPI Mild hypokalemia-replaced, bananas with meals. Chronic neck pain-workup as outpatient, Robaxin the cough and neck per home dose , Flexeril as needed. Occasional migraine headaches-Fioricet as needed. Thank you very much for this consult, if free T3 and free T4 are normal, or insignificant, we will sign off. Ambika Zurita MD Oct 28, 2017 18:11
[2017-10-28] MEDS ORDERED: CYCLOBENZAPRINE HCL 10 MG TAB PO PRN (18:15)
[2017-10-28] MEDS ORDERED: MECLIZINE HCL 25 MG TAB PO PRN (18:15)
[2017-10-28] MEDS ORDERED: ACETAMIN 325 MG/BUTALBITAL 50 MG/CAFFEINE 40 MG TAB PO PRN (18:15)
[2017-10-28] MEDS ORDERED: POTASSIUM CHLORIDE 25 MEQ EFFERVESCENT TAB PO ONE (18:15)
[2017-10-28] MEDS ORDERED: REMOVE OLD NICOTINE PATCH T-DERMAL SCH (21:00)
[2017-10-28 22:39] LABS: FREE T3 1.71 PG/ML (2.18-3.98); FREE T4 0.69 NG/DL (0.76-1.46)
[2017-10-29] MEDS ORDERED: LEVOTHYROXINE SODIUM 200 MCG TAB PO SCH (06:00)
[2017-10-29 06:06] VITALS: BP 132/75; PULSE 62; RESP 18; TEMP 97.5; O2SAT 100
[2017-10-29] MEDS ORDERED: METHOCARBAMOL 500 MG TAB PO SCH (09:00)
[2017-10-29] MEDS ORDERED: PANTOPRAZOLE SOD 40 MG DELAYED RELEASE TAB PO SCH (09:00)
[2017-10-29] MEDS ORDERED: DICLOFENAC PO SCH (09:00)
[2017-10-29] MEDS ORDERED: NICOTINE 21 MG/24 HR PATCH T-DERMAL SCH (09:00)
[2017-10-29 10:00] LABS: BICARBONATE 27.6 MEQ/L (21.0-32.0); BLOOD UREA NITROGEN 9 MG/DL (7-18); CALCIUM 8.8 MG/DL (8.5-10.1); CHLORIDE 105 MEQ/L (98-107); GLOMERULAR FILTRATION RATE 88 ML/MIN (>89); GLUCOSE,RANDOM 83 MG/DL (74-106); SODIUM (NA) 139 MEQ/L (136-145)
[2017-10-29 10:01] LABS: CHOLESTEROL 213 MG/DL (120-200); TRIGLYCERIDES 141 MG/DL (42-150)
[2017-10-29 10:04] LABS: LDL CHOLESTEROL 109 MG/DL (0-99)
--- NOTE | 2017-10-29 11:02 | HHI.HP ---
Provisional Diagnosis Admission Date Oct 28, 2017 at 16:26 Hector I. 1. Adjustment disorder with mixed disturbance of emotions and conduct 2. Alcohol intoxication, now resolved Hector II. Deferred Certification of Person's Competence To Provide Express and Informed Consent I have personally examined Herminia Joens , a person being served at [facility] on, Oct 29, 2017 11:02. Express and informed consent means consent voluntarily given in writing, by a competent person, after sufficient explanation and disclosure of the subject matter involved to enable the person to make a knowing and willful decision without any element of force, fraud, deceit, duress, or other form of constraint or coercion. This person is 18 years of age or older, is not now known to be incompetent to consent to treatment with a guardian advocate, and does not have a health care surrogate or proxy currently making medical treatment decisions. I have found this person to be one of the following: [x] Competent to provide express and informed consent, as defined above, for voluntary admission to this facility and is competent to provide express and informed consent for treatment. He/she has the consistent capacity to make well reasoned, willful, and knowing decisions concerning his or her medical or mental health treatment. The person fully and consistently understands the purpose of the admission for examination/placement and is fully capable of personally exercising all rights assured [place] Incompetent to provide express and informed consent to voluntary admission, and this is incompetent to provide express and informed consent to treatment. The person must be transferred to involuntary status and a petition for a guardian advocate filed with the Circuit Court. [] Refusing to provide express and informed consent to voluntary admission but is competent to provide express and informed consent for treatment. The person must be discharged or transferred to involuntary status. Form shall be completed within 24 hours of a person's arrival at the receiving facility and filed in the clinical record of each person: 1. Admitted on a voluntary basis 2. Permitted to provide express and informed consent to his/her own treatment 3. Allowed to transfer from involuntary to voluntary status 4. Prior to permitting a person to consent to his or her own treatment after having been previously found incompetent to consent to treatment. History of Present Illness Capacity: Has Capacity Psych Chief Complaint: "I was just being stupid, and my friend took it out of context." HPI Ms. Robert is a 52-year-old female with no reported past psychiatric history who presents under a Arechiga act by law enforcement alleging that patient "sent a text message to a friend stating she was done. She had taken pills and alcohol and would leave the door unlocked so her friend could rescue her cat." Of note , patient was intoxicated with an alcohol level of 304 on presentation here. She denied making any sort of toxic ingestion to the ED provider. Reviewing the electronic medical record, I see no previous psychiatric contact within our system. Patient seen and examined with nurse. Chart reviewed. Case discussed with nursing staff. There has been no evidence of behavioral disturbance, no suicidal or violent behavior noted since the patient has been on the inpatient unit. On my examination today, the patient is sober. She admits to sending text messages to friend but says that "I was just being stupid" and elaborates to say that she thinks it was to elicit "pity." Patient has apparently recently been struggling with recurrence of neck and head pain which had previously been in remission. She once again denies making any sort of toxic ingestion although she does admit to drinking 5 shots of peppermint schnapps. She denies any genuine suicidal intent at the time, and she denies any suicidal or homicidal ideation, intent or plan on direct questioning now. Mood is "pretty good," and I can elicit no depressive or hypomanic/manic symptoms in this patient at this time. She is future oriented. She denies significant issues with anxiety. She denies any audiovisual hallucinations. I can elicit no delusional beliefs. There is no evidence of any impairment in reality construction. The remainder of the psychiatric ROS is negative. No acute physical complaints, although the patient does report chronic neck and headache. Patient is requesting discharge from the inpatient psychiatric unit today noting that she has to get to work tomorrow. Past psychiatric history: Patient denies any history of psychiatric diagnosis. She denies any history of inpatient or outpatient psychiatric treatment. She denies any history of suicide attempts. Family history: The patient denies any family history of mental illness. No reported family history of suicide. Chemical dependency history: The patient reports that she is an occasional drinker. She did drink heavily prior to admission as noted above. She does endorse a history of DUI. She denies other consequences from her drinking. She does not view her alcohol use as problematic. She denies any other substance use. Social history: The patient is . She has no children. She has a pet cat. She works as a dental hygienist. She previously served in the [employer] but did not see combat. She had an honorable discharge. She denies any legal history. Denies any access to guns or firearms. She is a anabaptism Taoist. She denies any history of abuse. With the patient's permission, I have obtained collateral information from her friend Cory Fletcher at [phone]. He has known the patient for more than 10 years and has never known her to engage in suicidal or violent behavior. He has absolutely no concerns about the patient being a risk of harm to herself or others at this point and is comfortable with the patient being discharged home today. He notes that he plans to stay with the patient and watch over her. He thinks that patient's friend Sandi overreacted by calling the police. I did recommend that Mr. Fletcher secure the patient's home environment of all potential means of harm to self or others including guns, knives and medications out of an abundance of caution. I also educated him regarding the mechanisms in place to have the patient brought back to the emergency room for further psychiatric evaluation should the need arise including Arechiga act and ex parte. Review of Systems Except as stated in HPI: all other systems reviewed are Neg Past Family Social History Coded Allergies: penicillin G (Verified Allergy, Severe, HIVES, 10/27/17) thyroid, pork (Verified Allergy, Severe, hives, 10/27/17) Past Medical History Includes a history of migraine headache and hypothyroidism. Patient notes that she will follow up with her teacher specialist at the end of the week. Active Scripts Meclizine (Meclizine) 25 Mg Tab, 25 MG PO TID Y for VERTIGO, #15 TAB 0 Refills Prov:Jareth Carbajal MD 10/27/17 Tqnthevlpc-Npryqoxpswwtb-Akpwrvuu (Fioricet) 50-300-40 Mg Cap, 1-2 CAP PO Q6H Y for HEADACHE, #30 CAP 0 Refills Prov:Trenton Bose MD 10/11/17 Methocarbamol (Robaxin) 500 Mg Tab, 500 MG PO TID for Muscle Spasm for 5 Days, TAB 0 Refills Prov:Trenton Bose MD 05/19/17 Diclofenac (Zorvolex) 35 Mg Cap, 35 MG PO TID for Pain Management for 3 Days, CAP 0 Refills Prov:Trenton Bose MD 05/19/17 Reported Medications Omeprazole (Omeprazole) 40 Mg Cap, 40 MG PO DAILY, #30 CAP 0 Refills 10/27/17 Levothyroxine (Synthroid) 200 Mcg Tab, 200 MCG PO DAILY for Thyroid, #30 TAB 0 Refills 10/27/17 Current Medications Medications (Trade) Dose Ordered Sig/Emily Route Start Time Stop Time Status Last Admin (Atarax) 50 mg Q6H PRN PO 10/28/17 16:45 (Benadryl) 50 mg Q6H PRN PO 10/28/17 16:45 (Benadryl Inj) 50 mg Q6H PRN IM 10/28/17 16:45 (Tylenol) 650 mg Q4H PRN PO 10/28/17 16:45 (Milk Of Magnesia Liq) 30 ml DAILY PRN PO 10/28/17 16:45 (Mag-Al Plus Susp Liq) 30 ml Q6H PRN PO 10/28/17 16:45 (Habitrol 21 Mg Patch.24 Hr) 1 patch DAILY T-DERMAL 10/29/17 09:00 Miscellaneous Information 1 HS T-DERMAL 10/28/17 21:00 (Ativan) 1 mg Q4H PRN PO 10/28/17 17:15 (Ativan Inj) 1 mg Q4H PRN IV PUSH 10/28/17 17:15 (Ativan) 2 mg Q2H PRN PO 10/28/17 17:15 (Ativan Inj) 2 mg Q2H PRN IV PUSH 10/28/17 17:15 (Ativan Inj) 2 mg Q1H PRN IV PUSH 10/28/17 17:15 (Ativan Inj) 2 mg Q15M PRN IV PUSH 10/28/17 17:15 (Romazicon Inj) 0.2 mg Q1M PRN IV PUSH 10/28/17 17:15 (Synthroid) 200 mcg DAILY@0600 PO 10/29/17 06:00 10/29/17 06:19 (Antivert) 25 mg TID PRN PO 10/28/17 18:15 (Robaxin) 500 mg TID PO 10/29/17 09:00 Patient Own Medication PT OWN MED: (Diclofe... TID PO 10/29/17 09:00 Future Hold (Protonix) 40 mg DAILY PO 10/29/17 09:00 (Fioricet 325-50-40) 1 tab Q8H PRN PO 10/28/17 18:15 (Flexeril) 10 mg DAILY PRN PO 10/28/17 18:15 Patient's Strengths (min. 2) Supportive friend. Verbally fluent. Physical Exam Physical examination completed by hospitalist moving consultant. On my examination today, the patient appears to be in no acute physical distress. No motor abnormalities noted. No signs of intoxication or withdrawal noted. Labs and vitals reviewed: Vital Signs Vital Signs Date Time Temp Pulse Resp B/P (MAP) Pulse Ox O2 Delivery O2 Flow Rate FiO2 10/29/17 06:06 97.5 62 18 132/75 (94) 100 10/28/17 14:15 Room Air Lab Results Item Value Date Time White Blood Count 9.0 TH/MM3 10/27/172014 Hemoglobin 15.2 GM/DL 10/27/172014 Platelet Count 307 TH/MM3 10/27/172014 Sodium Level 139 MEQ/L 10/29/17903 Potassium Level 3.5 MEQ/L 10/29/17903 Chloride Level 105 MEQ/L 10/29/17903 Carbon Dioxide Level 27.6 MEQ/L 10/29/17903 Blood Urea Nitrogen 9 MG/DL 10/29/17 0904 Creatinine 0.70 MG/DL 10/29/17 09 Estimat Glomerular Filtration Rate 88 ML/MIN L 10/29/17 0904 Random Glucose 83 MG/DL 10/29/17903 Aspartate Amino Transf (AST/SGOT) 25 U/L 10/27/172104 Alanine Aminotransferase (ALT/SGPT) 30 U/L 10/27/172104 Alkaline Phosphatase 106 U/L 10/27/172104 Free Thyroxine 0.69 NG/DL L 10/28/17 2100 Free Triiodothyronine (T3) pg/dL 1.71 PG/ML L 10/28/17 2100 Thyroid Stimulating Hormone 3rd Gen 4.780 uIU/ML H 10/27/172104 Urine Barbiturates Screen POS H 10/27/172014 Ethyl Alcohol Level 304 MG/DL H 10/27/172104 Mental Status Examination Appearance: Appropriate Consciousness: Alert Orientation: x4 Motor Activity: Other (No motor abnormalities noted) Speech: Unremarkable Language: Adequate Fund of Knowledge: Adequate Attention and Concentration: Adequate Memory: Unremarkable Mood: Appropriate Affect: Appropriate Thought Process & Associations: Intact, Logical, Goal directed, Linear Thought Content: Appropriate Hallucination Type: None Delusion Type: None Suicidal Ideation: No Suicidal Plan: No Suicidal Intention: No Homicidal Ideation: No Homicidal Plan: No Homicidal Intention: No Insight: Adequate Judgment: Adequate Assessment & Plan Problem List: (1) Adjustment disorder with mixed disturbance of emotions and conduct ICD Codes: F43.25 - Adjustment disorder with mixed disturbance of emotions and conduct (2) Alcohol intoxication ICD Codes: F10.929 - Alcohol use, unspecified with intoxication, unspecified Status: Acute Assessment & Plan This is a 52-year-old female with psychiatric history as detailed above presently admitted to the inpatient psychiatric unit under a Arechiga act. On my examination today, the patient denies making suicide attempt prior to admission and denies any suicidal or homicidal ideation now. She does admit to sending text messages to friend but says that she was trying to elicit pity in her intoxicated state. I can detect no unstable mental illness as defined under the Arechiga act in this patient at this time. There is no evidence of any self- care deficit. I have obtained reassuring collateral information from the patient's friend, Cory. Synthesizing this information, I extender that the patient does not presently meet the Arechiga act criteria. She is requesting discharge from the inpatient psychiatric unit today, and I have no basis to retain her over her objection. I will discharge the patient home today in fair condition. I have recommended that the patient follow up with outpatient mental health and have also recommended that the patient pursue outpatient chemical dependency evaluation and treatment, and the counselor will provide the appropriate referrals. Patient is also to follow up with primary care and with endocrinology. I did discuss thyroid function tests with Dr. Botello from the hospitalist service who has assumed consultation from Dr. Zurita. Dr. Botello recommends no change to Synthroid dose and recommends having patient follow up with endocrinology on outpatient basis. I have counseled the patient to abstain from substances of abuse. I have counseled the patient regarding warning signs for need to return to the psychiatric emergency room as part of a general safety plan. I have provided the patient with no prescriptions on discharge. This note serves also as my discharge summary. Request HC Surrog/Guard Advoc?: No Mark Harris MD Oct 29, 2017 11:02
[2017-10-29 16:32] LABS: HEMOGLOBIN A1C 5.6 % (4.3-6.0)
== END 2017-10-29 12:05 | disposition home or self-care (01) | DRG 882 ==
LOC: NEDAMB 19:45 → NEDA 10-28 16:26 → H270 10-28 16:41
PROVIDERS: ADMIT Psychiatry & Neurology Psychiatry; ATTEND Psychiatry & Neurology Psychiatry
DX: F43.25 Adjustment disorder with mixed disturbance of emotions and conduct (principal); Z78.1 Physical restraint status; F10.129 Alcohol abuse with intoxication, unspecified; E03.9 Hypothyroidism, unspecified; M47.9 Spondylosis, unspecified; G43.909 Migraine, unspecified, not intractable, without status migrainosus; K21.9 Gastro-esophageal reflux disease without esophagitis; E87.6 Hypokalemia; F17.210 Nicotine dependence, cigarettes, uncomplicated; Y90.8 Blood alcohol level of 240 mg/100 ml or more; Z88.0 Allergy status to penicillin
CPT/HCPCS: 80048; 80053; 80061; 80307; 81001; 83036; 84439; 84443; 84481; 85007; 85027; 96372; J1630; J2060

== ENCOUNTER 2018-01-01 19:08 | Emergency (ER) | payer OTHER ==
[~2018-01-01 19:08] MED LIST changes: -ARMO90TA PO; -HYDR50TA94 PO; -METR0.7514 PR; -ORAC40CA PO; -PRED20 PO
[2018-01-01 19:37] VITALS: BP 125/84; PULSE 72; RESP 16; TEMP 97.8; O2SAT 98
[2018-01-01] MEDS ORDERED: GABA300C5 PO (21:42)
--- NOTE | 2018-01-01 22:19 | PD ---
HPI Chief Complaint: Numbness/Tingling Time Seen by Provider: 21:34 Travel History International Travel<30 days: No Contact w/Intl Traveler<30days: No Traveled to known affect area: No History of Present Illness HPI Patient is a 52-year-old female presents emergency department mildly intoxicated with her close friend for evaluation of low back pain and numbness and tingling in her lower extremities. Patient states his symptoms have been present for the past 4 months. Patient denies any saddle anesthesia denies any dysuria denies any numbness and tingling around her rectum. Patient does admit to drinking today to help control her pain. She has been admitted for alcohol intoxication delirium in the past. Patient states her symptoms initially started in her neck in July and then in August proceeded to her low back and then associated with numbness and tingling. She says all these symptoms have been present for a few months. Patient cannot identify what his change today that this caused her to come in and be seen. She denies any injury denies any chest pain shortness breath abdominal pain nausea vomiting. She is able to ambulate without difficulty. She just feels like her legs are going to "give out". symptoms moderate, for the past 4 months, intermittent, relieved with alcohol. PFSH Past Medical History Arthritis: Yes (SPINE) Cancer: No Cardiovascular Problems: No Diminished Hearing: No Gastrointestinal Disorders: Yes (Moe's Esophagus) GERD: Yes (GERD omeprazole twice per day) Genitourinary: No Hiatal Hernia: Yes Immune Disorder: No Musculoskeletal: Yes (BACK INJURY ) Psychiatric: No Reproductive: No Respiratory: No Integumentary: Yes (ROSACEA) Immunizations Current: No Thyroid Disease: Yes Tetanus Vaccination: Unknown Influenza Vaccination: No ?: Not Menopausal: Yes : 0 Past Surgical History Eye Surgery: Yes (RT EYE -REPAIR STRABISMUS) Oral Surgery: Yes (tonsillectomy) Tonsillectomy: Yes Other Surgery: Yes (Sinus) Social History Alcohol Use: Yes (" NEEDED " ) Tobacco Use: Yes (1 PPD) Substance Use: No Allergies-Medications (Allergen,Severity, Reaction): Coded Allergies: penicillin G (Verified Allergy, Severe, HIVES, 01/01/18) thyroid, pork (Verified Allergy, Severe, hives, 01/01/18) Reported Meds & Prescriptions Reported Meds & Active Scripts Active Reported Gabapentin 300 Mg Cap 300 Mg PO BID Omeprazole 40 Mg Cap 40 Mg PO DAILY Synthroid (Levothyroxine Sodium) 200 Mcg Tab 200 Mcg PO DAILY Review of Systems Except as stated in HPI: all other systems reviewed are Neg Physical Exam Narrative GENERAL: Well-developed well-nourished in no obvious distress. SKIN: Focused skin assessment warm/dry. HEAD: Atraumatic. Normocephalic. EYES: Pupils equal and round. No scleral icterus. No injection or drainage. ENT: No nasal bleeding or discharge. Mucous membranes pink and moist. NECK: Trachea midline. No JVD. CARDIOVASCULAR: Regular rate and rhythm. No murmur appreciated. RESPIRATORY: No accessory muscle use. Clear to auscultation. Breath sounds equal bilaterally. GASTROINTESTINAL: Abdomen soft, non-tender, nondistended. Hepatic and splenic margins not palpable. MUSCULOSKELETAL: No obvious deformities. No clubbing. No cyanosis. No edema. No midline CT or L-spine tenderness, extremities are atraumatic. Pulse motor and sensory intact distally in all 4 extremities and compartments are soft NEUROLOGICAL: Awake and alert and oriented, has significant lateral nystagmus but otherwise she is fairly sober. She has 5 out of 5 strength in all 4 extremities in all major muscle groups of. Sensation is intact over the ankle portions of L4-L5 and S1 to light touch and sharp sensation bilaterally. Her straight leg raise is negative. Other than the nystagmus Cranial nerves II through XII are grossly intact and nonfocal PSYCHIATRIC: Appropriate mood and affect; insight and judgment normal. Data Data Last Documented VS Vital Signs Date Time Temp Pulse Resp B/P (MAP) Pulse Ox O2 Delivery O2 Flow Rate FiO2 01/01/18 19:37 97.8 72 16 125/84 (98) 98 Orders Orders Ed Discharge Order (01/01/18 22:18) MDM Medical Decision Making Medical Screen Exam Complete: Yes Emergency Medical Condition: Yes Differential Diagnosis Degenerative disc disease, spinal stenosis, cauda equina syndrome unlikely, critical spinal stenosis highly unlikely, back fracture highly unlikely peer Narrative Course Patient on physical exam does not have signs symptoms of neurologic compromise, no sign symptoms to suggest spinal fracture. The duration of her symptoms suggest a chronic nature of her problem. At this time there is no emergent need workup and the patient has been referred to the [facility] as an outpatient or her primary care physician for further workup. She is counseled on the signs symptoms for cauda equina syndrome and counseled on need for alcohol cessation and discussed follow-up store [facility]. She is stable for discharge Diagnosis Primary Impression: Neck pain Disposition: 01 DISCHARGE HOME Condition: Stable Davon Bautista MD Jan 01, 2018 22:19
== END 2018-01-01 22:46 | disposition home or self-care (01) ==
LOC: NEPD 19:08
DX: M54.2 Cervicalgia (principal); F17.210 Nicotine dependence, cigarettes, uncomplicated; Z88.0 Allergy status to penicillin; Z79.899 Other long term (current) drug therapy
CPT/HCPCS: 99281